=== PATIENT | female | born 1940 | race Caucasian/White ===

== ENCOUNTER 2016-11-10 07:47 | Emergency (ER) | payer OTHER ==
[~2016-11-10] VITALS: Ht 160 cm; Wt 84.4 kg
[~2016-11-10 07:47] MED LIST: ATARAX,VISTARIL25 MG PO; CALCIUM CITR1 TABLET PO; CLOBETASOL PROP60 GM TP; GABAPENTIN; GABAPENTIN100 MG PO; METOPROLOL; NEURONTIN100 MG PO; NEXIUM; NEXIUM40 MG PO; TOPROL XL50 MG PO; oxyCODONE PO
[2016-11-10] MEDS ORDERED: TRAMADOL HCL50 MG PO (10:22)
[2016-11-10 10:40] VITALS: BP 198/86
== END 2016-11-10 10:41 | disposition home or self-care (01) ==
LOC: EME 07:47
DX: S80.01XA Contusion of right knee, initial encounter (principal); M54.2 Cervicalgia; G89.29 Other chronic pain; S29.012A Strain of muscle and tendon of back wall of thorax, initial encounter; W18.30XA Fall on same level, unspecified, initial encounter; Y92.003 Bedroom of unspecified non-institutional (private) residence as the place of occurrence of the external cause; I10 Essential (primary) hypertension; K21.9 Gastro-esophageal reflux disease without esophagitis; M81.0 Age-related osteoporosis without current pathological fracture; Z95.810 Presence of automatic (implantable) cardiac defibrillator; Z90.49 Acquired absence of other specified parts of digestive tract
CPT/HCPCS: 73564; 99281; 99285